=== PATIENT | female | born 1960 | race Caucasian/White ===

== ENCOUNTER → 2018-04-09 | Outpatient (CLI) | payer OTHER, BC ==
[2016-03-16 20:52] VITALS: BP 170/7
[~2018-04-09] MED LIST: CANA100T PO; HYDR-2678 PO; METF10007 PO; TRAM50TA PO
--- NOTE | 2018-04-11 09:43 | RAD ---
DATE: 04/09/2018 EXAM: DIGITAL SCREEN BILAT W/CAD HISTORY: Routine screening COMPARISON: Baseline study This study was interpreted with the benefit of Computerized Aided Detection (CAD). Breast Density: SCATTERED The breast parenchyma shows scattered fibroglandular densities. Breast parenchyma level B. FINDINGS: No suspicious breast densities are seen. Minimal benign type calcification is present. No suspicious microcalcifications are evident. Benign-appearing lymph node type densities are noted in the axillary regions. IMPRESSION: There is no mammographic evidence of malignancy in either breast. BI-RADS CATEGORY: 2 BENIGN FINDING(S) RECOMMENDED FOLLOW-UP: 12M 12 MONTH FOLLOW-UP PQRS compliance statement: Patient information was entered into a reminder system with a target due date for the next mammogram. Mammography is a sensitive method for finding small breast cancers, but it does not detect them all and is not a substitute for careful clinical examination. A negative mammogram does not negate a clinically suspicious finding and should not result in delay in biopsying a clinically suspicious abnormality. "Our facility is accredited by the [employer] Mammography Program."
== END | disposition home or self-care (01) ==
LOC: MAMMO 09:49
PROVIDERS: ATTEND Family Medicine
DX: Z12.31 Encounter for screening mammogram for malignant neoplasm of breast (principal)
CPT/HCPCS: 77067

== ENCOUNTER → 2018-10-11 | Outpatient (CLI) | payer BC ==
[2016-03-16 20:52] VITALS: BP 170/7
--- NOTE | 2018-10-12 09:55 | RAD ---
MRI of the cervical spine without contrast 10/11/2018 CLINICAL HISTORY: Neck pain which radiates down the left arm. TECHNIQUE: Unenhanced T1-weighted, T2-weighted and inversion recovery sagittal and gradient echo and T2-weighted axial images of the cervical spine were obtained. FINDINGS: Comparison study is dated 07/20/2018. There is straightening of the normal cervical lordosis. Degenerative signal changes are seen involving all of the disks of the cervical spine. Degenerative signal changes are seen within the marrow surrounding the C5-6 and C6-7 discs predominantly. No area of abnormal signal intensity is seen involving the cervical spinal cord. At the C2-3, C3-4 and C4-5 disc spaces there are minimal to mild generalized disc bulges. Degenerative changes are seen involving the uncovertebral and facet joints bilaterally. Superimposed on the disc bulge is a focal central disc protrusion at C3-4. This measures 2 mm in AP diameter. These findings do not result in significant central spinal canal or neural foraminal stenosis. At the C5-6 disc space there is a mild generalized disc bulge. Degenerative changes are seen involving the uncovertebral and facet joints bilaterally. These findings when combined do not result in significant central spinal canal or neural foraminal stenosis. At the C6-7 disc space there is a mild generalized disc bulge. Superimposed on this disc bulge is a right paracentral disc osteophyte complex. This measures 3 mm in AP diameter. Degenerative changes are seen involving the uncovertebral and facet joints, left greater than right. These findings efface the anterior and posterior CSF resulting in mild right greater than left central spinal canal stenosis without evidence of cord impingement. Mild to moderate left greater than right neural foraminal stenosis is seen. At the C7-T1 disc space there is a mild generalized disc bulge. Degenerative changes are seen involving the uncovertebral and facet joints bilaterally. These findings do not result in significant central spinal canal or neural foraminal stenosis. IMPRESSION: Degenerative changes are seen throughout the cervical spine. These findings result in mild right greater than left central spinal canal stenosis without evidence of cord impingement and mild to moderate left greater than right neural foraminal stenosis at C6-7. Electronically signed by: Blue Vázquez MD (10/12/2018 9:51 AM) [email or web address]
== END | disposition home or self-care (01) ==
LOC: MRI 14:12
PROVIDERS: ATTEND Family Medicine
DX: M47.22 Other spondylosis with radiculopathy, cervical region (principal); M48.02 Spinal stenosis, cervical region; M50.11 Cervical disc disorder with radiculopathy, high cervical region; M51.24 Other intervertebral disc displacement, thoracic region; M25.78 Osteophyte, vertebrae
CPT/HCPCS: 72141

== ENCOUNTER → 2018-12-02 | Outpatient (CLI) | payer BC ==
[2016-03-16 20:52] VITALS: BP 170/7
[~2018-12-02] MED LIST changes: +BUDE10.2 IH; +CANA300T PO; +CIDE300T PO; +CLON0.5T11 PO; +ERGO500027 PO; +IOHEXOL 180 MG/ML 10 ML VIAL. ONE; +METF500T16 PO; +MULT1TAB52 PO; +OMEG1CAP38 PO; +SIMV40TA3 PO; +methylPREDNISolone ACETATE 40 MG/ML VIAL. ONE; +methylPREDNISolone ACETATE 80 MG/ML VIAL. ONE
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
== END ==
LOC: PNCL 10:23
PROVIDERS: ATTEND Anesthesiology
DX: M50.123 Cervical disc disorder at C6-C7 level with radiculopathy (principal); E11.9 Type 2 diabetes mellitus without complications; F17.210 Nicotine dependence, cigarettes, uncomplicated; Z98.51 Tubal ligation status; Z79.84 Long term (current) use of oral hypoglycemic drugs
CPT/HCPCS: 62321; J1030; J1040; Q9965

== ENCOUNTER → 2018-12-21 | Outpatient (CLI) | payer BC ==
[2016-03-16 20:52] VITALS: BP 170/7
--- NOTE | 2018-12-21 22:15 | PAIN ---
DATE OF SERVICE: 12/21/2018 DIAGNOSES: Cervical radiculopathy with cervical degenerative disk disease and cervical spinal stenosis. HISTORY OF PRESENT ILLNESS: The patient is a 58-year-old female who returns for followup status post cervical epidural steroid injection x 1. The patient reports about 35-40% improvement in the pain in her left upper extremity, neck and shoulder. She has been increasing her activity with greater ease and comfort but still some significant pain in the left arm as it was previously. The patient reports it is a 6 on a scale of 10 at its worst in the past week, 3 on average, 2 at its least and is a 3 today. The patient reports tight, tingling, burning, cramping on and off in intensity, but still significantly improved. The patient reports no new motor or sensory deficits, no new bowel or bladder incontinence or other complaints. PHYSICAL EXAMINATION: VITAL SIGNS: Today, the patient's blood pressure is 109/70, pulse 81, respirations 16, temperature 98.5 degrees Fahrenheit, weight is 208 pounds. GENERAL: The patient is awake, alert, oriented, appropriate, very pleasant demeanor. HEENT: Head is normocephalic, atraumatic. Extraocular movements are intact and symmetrical. NECK: Shows anterior throat supple without palpable lymphadenopathy noted. Swallow reflex symmetrical. CHEST: Shows normal on inspection. Breath sounds clear to auscultation bilaterally. HEART: Shows S1, S2 clear. No murmurs auscultated. ABDOMEN: Soft, nontender, nondistended. No palpable organomegaly is noted. No rebound or guarding demonstrated. EXTREMITIES: The patient's upper extremities show deep tendon reflexes 2+ in the biceps, triceps tendons. Motor exam is strong with search analyst strength rated at 4 on a scale of 5 on the left and 5/5 on the right. Peripheral pulses are 2+ radial distribution. No peripheral edema is noted bilaterally. Options were discussed with the patient. The patient's old chart was reviewed as her current medication regimen updated. Current review of systems updated today as well. We will proceed with a cervical epidural steroid injection today second in the series with fluoroscopic guidance. Risks were again discussed including, but not limited to bleeding, infection, possibility of epidural hematoma, subsequent neurological compromise, dural puncture, headaches, spinal cord and/or nerve damage, side effects of steroid medication and poor results regarding pain control. The patient understands and wished to proceed. The patient will return to clinic in approximately 2 weeks for followup. She was counseled on return appointment, activity level and side effects to be aware of. DIAGNOSES: Cervical radiculopathy with cervical degenerative disk disease and cervical spinal stenosis. PROCEDURE: Cervical epidural steroid injection, translaminar approach at the C6-C7 level using C-arm fluoroscopic guidance under sterile prep and drape using local anesthetic. MEDICATION INJECTED: A total of 120 mg Depo-Medrol plus 5 mL of preservative-free normal saline and 2 mL of contrast. CONDITION AT DISCHARGE: Stable. The patient tolerated the procedure well, had no complications. HEVER ARANDA MD DR: JUSTINE/gosia JOB#: [id number] / [id number]
== END ==
LOC: PNCL 14:03
PROVIDERS: ATTEND Anesthesiology
DX: M50.123 Cervical disc disorder at C6-C7 level with radiculopathy (principal); M48.12 Ankylosing hyperostosis [Forestier], cervical region
CPT/HCPCS: 62321; J1030; J1040; Q9965

== ENCOUNTER → 2019-01-18 | Outpatient (CLI) | payer BC ==
[2016-03-16 20:52] VITALS: BP 170/7
[~2019-01-18] MED LIST changes: +CLON-77 PO; -CLON0.5T11 PO; -IOHEXOL 180 MG/ML 10 ML VIAL. ONE; -methylPREDNISolone ACETATE 40 MG/ML VIAL. ONE; -methylPREDNISolone ACETATE 80 MG/ML VIAL. ONE
--- NOTE | 2019-01-19 02:27 | PAIN ---
DATE OF SERVICE: 01/18/2019 PROGRESS NOTE FOR PAIN CLINIC DIAGNOSES: Cervical radiculopathy with cervical degenerative disk disease and cervical spinal stenosis. HISTORY OF PRESENT ILLNESS: The patient is very much a 58-year-old female, who returns for followup status post cervical epidural steroid injection x 2. The patient reports about 85% improvement after last injection with very good decrease pain in base of the neck and shoulders, especially on the left side. The patient reports no new motor or sensory deficits, no new bowel or bladder incontinence. She still has some tingling and burning, aching and sharp pain occasionally shooting in the left arm, but doing much better. She has increased her activity with greater ease and comfort at work, walking, doing household activities as well as traveling with greater ease and comfort, sleeping well at night, pain does not awaken her from sleep. The patient reports no new motor or sensory deficits, no new changes. The patient rates her pain as 5 on a scale of 10 at its worst over the past week, 3 on average, 2 at its least and is a 2 today. The patient reports no new motor or sensory deficits, no changes. PHYSICAL EXAMINATION: VITAL SIGNS: The patient's blood pressure is 123/75, pulse 96, respirations 16, temperature 99.0 degrees Fahrenheit, height is 5 feet 2 inch, weight is 209 pounds. GENERAL: The patient is awake, alert, oriented, appropriate, very pleasant demeanor. HEENT: Head is normocephalic, atraumatic. Extraocular movements are intact and symmetrical. Oral cavity: Mucous membranes are moist and pink. Dentition is intact. NECK: Shows anterior throat supple without palpable lymphadenopathy noted. Swallow reflex is symmetrical. CHEST: Shows normal on inspection. Breath sounds clear to auscultation bilaterally. BACK: Shows spine grossly in the midline. Cervical paraspinous muscle shows symmetrical on inspection and palpation shows some moderate tenderness diffusely in the inferior aspect of the cervical paraspinous muscles and superior medial trapezius bilaterally, but only diffusely without radiation. EXTREMITIES: The patient's upper extremities show deep tendon reflexes 2+ in the biceps and triceps tendons. Motor exam is strong with 4/5 patternmaker apprentice wood strength in the left and 5/5 on the right. Bicep and tricep flexion is 5/5 bilaterally. Peripheral pulses are 2+ radial distribution. No peripheral edema is noted. Options were discussed with the patient. The patient's old chart was reviewed as her current medication regimen updated. Current review of systems updated today as well. We will hold on any further injections at this time as the patient is doing quite well with 85% improvement. We will have to increase her activity as tolerated. Continue with stretching and strengthening exercises as she is doing with her left arm and elbow and follow up at this time on as needed basis. HEVER ARANDA MD DR: JUSTINE/gosia JOB#: [id number] / [id number]
== END | disposition home or self-care (01) ==
LOC: PNCL 14:03
PROVIDERS: ATTEND Anesthesiology
DX: M50.10 Cervical disc disorder with radiculopathy, unspecified cervical region (principal); M48.02 Spinal stenosis, cervical region
CPT/HCPCS: G0463

== ENCOUNTER → 2019-10-24 | Outpatient (CLI) | payer BC ==
[2016-03-16 20:52] VITALS: BP 170/7
[~2019-10-24] MED LIST changes: +MULT-445 PO; -MULT1TAB52 PO; +SIMV40TA18 PO; -SIMV40TA3 PO
--- NOTE | 2019-10-24 14:08 | RAD ---
DATE: 10/24/2019 10:40 AM EXAM: MAMMO PARISH SCREENING BILATERAL HISTORY: Screening COMPARISON: 04/09/2018 Bilateral CC and MLO views of the breasts were performed. Bilateral breast tomosynthesis was performed in CC and MLO projections. This study was interpreted with the benefit of Computerized Aided Detection (CAD). FINDINGS: Breast Density: FATTY The Breast Parenchyma is primarily fatty replaced. Breast parenchyma level density A. No suspicious masses, microcalcifications or architectural distortion is present to suggest malignancy in either breast. The visualized axillae are unremarkable. IMPRESSION: No mammographic evidence of malignancy. BI-RADS CATEGORY: 1 NEGATIVE RECOMMENDED FOLLOW-UP: 12M 12 MONTH FOLLOW-UP Annual screening mammography is recommended, unless clinically indicated sooner based on symptoms or change in physical exam. PQRS compliance statement: Patient information was entered into a reminder system with a target due date for the next mammogram. Mammography is a sensitive method for finding small breast cancers, but it does not detect them all and is not a substitute for careful clinical examination. A negative mammogram does not negate a clinically suspicious finding and should not result in delay in biopsying a clinically suspicious abnormality. "Our facility is accredited by the [employer] Mammography Program."
== END | disposition home or self-care (01) ==
LOC: MAMMO 10:30
PROVIDERS: ATTEND Family Medicine
DX: Z12.31 Encounter for screening mammogram for malignant neoplasm of breast (principal); N64.89 Other specified disorders of breast
CPT/HCPCS: 77063; 77067